=== PATIENT | male | born 1970 | race Caucasian/White ===

== ENCOUNTER 2016-09-30 09:45 | Emergency (ER) | payer BC ==
[2016-09-30 10:29] VITALS: BP 150/93
--- NOTE | 2016-09-30 10:56 | UC ---
Dizzy HPI HPI Summary: complaint of intermittent dizziness since went to ED -[facility]- had EKG, ct scan normal, told he had a slightly elevated BG and BP given meclizine for dizziness feels like he is spinning - worse when he moves his head started taking meclizine with some relief sore throat that stared 4 days ago and has worsened both ears are painful and radiating into the back of his head slight cough- denies nasal discharge symptoms have worsened denies fever and chills denies chest pain, shortness of breath, diaphoresis, nausea - History Of Current Complaint Chief Complaint: UCDizziness Stated Complaint: DIZZY,SORE THROAT Time Seen by Provider: 09/30/16 10:46 Hx Obtained From: Patient - Allergies/Home Medications Allergies/Adverse Reactions: Allergies Allergy/AdvReac Type Severity Reaction Status Date / Time Clindamycin Allergy Hives Verified 09/30/16 10:21 Home Medications: Home Medications Aspirin TAB* [Aspirin 325 MG TAB*] 650 mg PO Q6H PRN 09/30/16 [History Confirmed 09/30/16] Meclizine TAB* [Antivert 12.5 TAB*] 25 mg PO TID PRN 09/30/16 [History Confirmed 09/30/16] PMH/Surg Hx/FS Hx/Imm Hx Previously Healthy: Yes Endocrine History Of: Denies: Diabetes - "Borderline" Cardiovascular History Of: Reports: Hypertension - Treated in the Past - Surgical History Surgical History: Yes Surgery Procedure, Year, and Place: Lumbar Discectomy, ?Year, [facility]; Cholecystectomy, 1999, [facility]; Appendectomy, ~1983, [place] - Family History Known Family History: Positive: Other - no family history of hearing loss. Negative: Cardiac Disease, Hypertension, Diabetes - Social History Occupation: Employed Full-time Lives: With Family Alcohol Use: Occasionally Substance Use Type: None Smoking Status (MU): Former Smoker Type: Cigarettes Amount Used/How Often: ~2 PPD Length of Time of Smoking/Using Tobacco: 30+ Years When Did the Patient Quit Smoking/Using Tobacco: ~2005 - Immunization History Most Recent Influenza Vaccination: Not the 2016/2016 Season Review of Systems Constitutional: Negative Skin: Negative Eyes: Negative ENT: Sore Throat, Ear Ache, Nasal Discharge Respiratory: Cough Cardiovascular: Negative Gastrointestinal: Negative Genitourinary: Negative Motor: Negative Neurovascular: Negative Musculoskeletal: Negative Neurological: Negative Psychological: Negative All Other Systems Reviewed And Are Negative: Yes Physical Exam Triage Information Reviewed: Yes Appearance: No Pain Distress, Well-Nourished, Obese Vital Signs: Initial Vital Signs Temp 98 F 09/30/16 10:18 Pulse 73 09/30/16 10:18 Resp 16 09/30/16 10:18 BP 150/93 09/30/16 10:18 Pulse Ox 96 09/30/16 10:18 Vital Signs Reviewed: Yes Eyes: Positive: Conjunctiva Clear ENT: Positive: Pharyngeal erythema, Nasal congestion, Nasal drainage, TM bulging , TM red - bilaterally, Other: - [facility] - wears hearing aides Neck: Positive: Supple, Nontender, No Lymphadenopathy, Other: - negative Kernigs and Brudinzki sign. Negative: Nuchal Rigidity Respiratory: Positive: Lungs clear, Normal breath sounds, No respiratory distress, No accessory muscle use Cardiovascular: Positive: RRR, No Murmur, Pulses Normal Abdomen Description: Positive: Nontender, Soft Bowel Sounds: Positive: Present Musculoskeletal: Positive: No Edema Neurological: Positive: Alert, Other: - CN [id number] WNL, even gait, negative Rhomberg test, normal patellar reflexes Psychological Exam: Normal Skin Exam: Normal Dizzy Course/Dx - Course Course Of Treatment: exam completed. pt currently has otits media bilaterally which may be making his dizziness worse- will treat for infection and close followup with PCP. continue meclizine. no defecits noted with neuro examination. refuses EKG. stated understanding of symptoms and signs when to seek emergent help with dizziness - Differential Dx/Diagnosis Differential Diagnosis/HQI/PQRI: Benign Paroxysmal Positional Vertigo, Labyrinthitis, Other - vertigo Provider Diagnoses: otitis media bilaterally. vertigo. elevated blood pressure Discharge - Discharge Plan Condition: Stable Disposition: HOME Prescriptions: Amoxicillin/Clavulanate TAB* [Augmentin TAB 875*] 875 mg PO BID #20 tab Patient Education Materials: Otitis Media (ED), Vertigo (ED) Referrals: Bhavna Rodriguez [Primary Care Provider] - Additional Instructions: Please take antibiotic as directed Increase fluids and rest Take acetaminophen or ibuprofen for fever or pain continue to take meclizine as directed If your dizziness worsens or you have any chest pain, shortness of breath, nausea, sweating profusely please got to the emergency room for further evaluation and treatment. Your blood pressure is elevated. Please contact your primary care provider within 3-5 days for further evaluation Please review your discharge instructions. If your symptoms do not improve please call your primary care provider or return to urgent care.
== END 2016-09-30 11:25 | disposition home or self-care (01) ==
LOC: UCCORT 09:45
DX: H66.93 Otitis media, unspecified, bilateral (principal); R42 Dizziness and giddiness; R03.0 Elevated blood-pressure reading, without diagnosis of hypertension; I10 Essential (primary) hypertension; E66.9 Obesity, unspecified; Z88.1 Allergy status to other antibiotic agents; Z87.891 Personal history of nicotine dependence
CPT/HCPCS: 99212; G0463

== ENCOUNTER 2017-02-25 09:57 | Emergency (ER) | payer BC ==
[2017-02-25 10:13] VITALS: BP 130/89
--- NOTE | 2017-02-25 10:25 | UC ---
Dizzy HPI HPI Summary: 46 YEAR OLD MALE WITH A MEDICAL HISTORY OF VERTIGO PRESENTS WITH COMPLAINS OF DIZZINESS FROM SINUS CONGESTION. - History Of Current Complaint Chief Complaint: UCEar Stated Complaint: DIZZY Time Seen by Provider: 02/25/17 10:20 Hx Obtained From: Patient Hx From Patient Unobtainable Due To: Dementia Onset/Duration: Sudden Onset Timing: Constant Severity Initially: Moderate Severity Currently: Moderate Character: Weak Aggravating Factor(s): Headache Alleviating Factor(s): Rest - Allergies/Home Medications Allergies/Adverse Reactions: Allergies Allergy/AdvReac Type Severity Reaction Status Date / Time Clindamycin Allergy Hives Verified 02/25/17 10:13 Home Medications: Home Medications Hydrochlorothiazide TAB* [Hydrodiuril TAB*] 25 mg PO DAILY 02/25/17 [History Confirmed 02/25/17] Ramipril CAP* [Altace CAP*] 5 mg PO BID 02/25/17 [History Confirmed 02/25/17] PMH/Surg Hx/FS Hx/Imm Hx Previously Healthy: Yes - Surgical History Surgical History: Yes Surgery Procedure, Year, and Place: Lumbar Discectomy, ?Year, [facility]; Cholecystectomy, 1999, [facility]; Appendectomy, ~1983, [place] - Family History Known Family History: Positive: Other - no family history of hearing loss. Negative: Cardiac Disease, Hypertension, Diabetes - Social History Alcohol Use: Daily Alcohol Amount: 4-5 beers Substance Use Type: None Smoking Status (MU): Former Smoker Type: Cigarettes Amount Used/How Often: ~2 PPD Length of Time of Smoking/Using Tobacco: 30+ Years When Did the Patient Quit Smoking/Using Tobacco: ~2005 - Immunization History Most Recent Influenza Vaccination: not 2016/2017 Most Recent Pneumonia Vaccination: 02/2017 Review of Systems Constitutional: Fatigue Skin: Negative Eyes: Negative ENT: Negative Respiratory: Negative Cardiovascular: Negative Gastrointestinal: Negative Genitourinary: Negative Motor: Negative Neurovascular: Negative Musculoskeletal: Negative Neurological: Negative Psychological: Negative All Other Systems Reviewed And Are Negative: Yes Physical Exam Triage Information Reviewed: Yes Vital Signs: Initial Vital Signs Temp 36.8 C 02/25/17 10:09 Pulse 73 02/25/17 10:09 Resp 20 02/25/17 10:09 BP 130/89 02/25/17 10:09 Pulse Ox 96 02/25/17 10:09 Vital Signs Reviewed: Yes Eye Exam: Normal ENT: Positive: Pharyngeal erythema, Nasal congestion, Nasal drainage Dental Exam: Normal Neck exam: Normal Neck: Positive: 1 Respiratory Exam: Normal Cardiovascular Exam: Normal Abdominal Exam: Normal Bowel Sounds: Positive: Present Musculoskeletal Exam: Normal Neurological Exam: Normal Psychological Exam: Normal Skin Exam: Normal Dizzy Course/Dx - Differential Dx/Diagnosis Provider Diagnoses: DIZZINESS. SINUS CONGESTION Discharge - Discharge Plan Condition: Stable Disposition: HOME Prescriptions: Amoxicillin/Clavulanate TAB* [Augmentin TAB 875*] 875 mg PO BID #20 tab Methylprednisolone [Medrol Dosepak 4 MG*] 4 mg PO .[place] [employer] #21 tab Patient Education Materials: Sinusitis (ED), Dizziness (ED) Referrals: Bhavna Rodriguez [Primary Care Provider] -
== END 2017-02-25 10:39 | disposition home or self-care (01) ==
LOC: UCCORT 09:57
DX: R42 Dizziness and giddiness (principal); R09.81 Nasal congestion; R53.83 Other fatigue; Z88.1 Allergy status to other antibiotic agents; Z87.891 Personal history of nicotine dependence
CPT/HCPCS: 99212; G0463